=== PATIENT | female | born 1990 ===

== ENCOUNTER 2020-07-14 05:47 | Emergency (ER) | payer OTHER, MEDICAID, SELFPAY ==
[2020-07-14] VITALS (7 sets, daily range): BP systolic 113–125; BP diastolic 56–76; PULSE 80–98; RESP 16–18; TEMP 36.5; O2SAT 100; BMI 23.8
--- NOTE | 2020-07-14 07:31 | ED.SKABFB ---
HPI - Skin/Abscess/Foreign Bdy General Chief complaint: Skin/Abscess/Foreign Body Stated complaint: Abscess Time Seen by Provider: 07/14/20 06:54 Source: patient Mode of arrival: Ambulatory Limitations: no limitations History of Present Illness HPI narrative: Patient is a 29-year-old female history of IVDA presenting with abscess on her right clavicle area. She says it has been there for the last 3 days. She states that she injected there about a week ago. She has had difficulty with transportation getting to the needle exchange so she thinks that is why she has an abscess. She also is complaining urinary frequency. She is worried that she might have gonorrhea chlamydia she was treated for this all while ago she was told that the partner was also treated but she recently was back with him and is worried she had gonorrhea chlamydia might be back. She denies any fever chills or rigors MD complaint: abscess/boil Onset (ago): day(s) (3) Location: neck Severity: mild Related Data Previous Rx's Medication Instructions Recorded doxycycline hyclate 100 mg PO BID #14 cap 07/14/20 doxycycline hyclate 100 mg PO BID #14 cap 07/14/20 nitrofurantoin monohyd/m-cryst 100 mg PO Q12H 5 Days #10 cap 07/14/20 [Macrobid] nitrofurantoin monohyd/m-cryst 100 mg PO Q12H 5 Days #10 cap 07/14/20 [Macrobid] Allergies Allergy/AdvReac Type Severity Reaction Status Date / Time Sulfa (Sulfonamide Allergy Rash Verified 07/14/20 09:25 Antibiotics) Review of Systems Review of Systems Narrative: GENERAL: Denies chills, fatigue, malaise, fever, sweats, travel HEENT: Denies sinus pain, ear pain, sore throat, difficulty swallowing, neck pain RESPIRATORY: Denies dyspnea, cough, wheezing, hemoptysis, sputum. CARDIOVASCULAR: Denies chest pain, palpitations, orthopnea, edema GASTROINTESTINAL: Denies nausea, vomiting, abdominal pain, diarrhea, constipation, melena. : See HPI MUSCULOSKELETAL: Denies weakness, joint pain, or bony pain SKIN: See HPI NEUROLOGIC: Denies weakness, dizziness, headache, numbness, change in speech, confusion PSYCHIATRIC: No concerning psychosocial issues. 12 point review of systems is negative except for those stated above and HPI Patient History Medical History (Updated 07/14/20 @ 09:40 by Anabell Rush DO) Heroin abuse Social History Smoking Status: Current every day smoker Smoking Status: Current every day smoker tobacco type: cigarettes Substance Use Type: heroin Exam Initial Vital Signs Initial Vital Signs: Vital Signs Temperature 97.7 F 07/14/20 05:50 Pulse Rate 98 H 07/14/20 05:50 Respiratory Rate 18 07/14/20 05:50 Blood Pressure 125/66 07/14/20 05:50 Pulse Oximetry 100 07/14/20 05:50 GENERAL: Alert well-appearing 29-year-old female and in no acute distress. HEENT: Head atraumatic,EOMI, pupils reactive, face symmetric, moist mucous membranes CARDIOVASCULAR: Regular rate and rhythm without murmurs, rubs or gallops. RESPIRATORY: Breath sounds equal bilaterally, no wheezes rales or rhonchi. ABDOMEN: Soft, nontender. Normoactive bowel sounds all 4 quadrants. No guarding or rebound : No CVA tenderness EXTREMITIES: Normal range of motion, no clubbing or edema. Neurovascularly intact NEUROLOGICAL: Alert and oriented x4.Normal gait and speech. Cranial nerves II through XII grossly intact. SKIN: Abscess over right clavicle area medially. 2 cm x 3 cm fluctuant no induration. Multiple cutting scars noted on left forearm. Mild erythema at wrist no swelling induration or fluctuance at this time. Procedures Abscess I/D I&D #1: Site: neck Side (if applicable): right Local Anesthetic: lidocaine 1% Amount of anesthesia used (mL): 4 Technique: incised with #11 blade Amount of fluid expressed (mL): 5 Irrigation: No Packing used?: none Complications: pain and bleeding Course Orders Ordered: ED Orders 07/14/20 07:07 Chlamydia Gonorrhea PCR -URINE Stat Test Urine Stat Urine Microscopic Stat 07/14/20 07:41 CT soft tissue neck w con Stat 07/14/20 07:42 Blood Culture Stat 07/14/20 07:55 Complete Blood Count AUTO DIFF Stat Comprehensive Metabolic Panel Stat Procalcitonin Stat 07/14/20 09:38 Wound Culture and Gram Stain Stat Discontinued Medications Sodium Chloride (Normal Saline 0.9%) 1,000 mls @ 1,000 mls/hr IV BOLUS ONE Stop: 07/14/20 09:22 Last Infusion: 07/14/20 10:28 Dose: 0 mls/hr Documented by: Admin: 07/14/20 08:50 Dose: 1,000 mls/hr Documented by: MARILYN Ceftriaxone Sodium/Dextrose (Rocephin) 1 gm in 50 mls @ 100 mls/hr IV NOW ONE Stop: 07/14/20 09:59 Last Infusion: 07/14/20 10:28 Dose: 0 mls/hr Documented by: Admin: 07/14/20 09:50 Dose: 100 mls/hr Documented by: HOOD Lidocaine HCl (Lidocaine 1% (Pf)) 4 ml SUBCUT NOW ONE Stop: 07/14/20 09:13 Last Admin: 07/14/20 09:54 Dose: 4 ml Documented by: HOOD Vital Signs Vital signs: Vital Signs - 8 hr 07/14/20 05:50 07/14/20 08:16 07/14/20 08:38 Temperature 97.7 F Pulse Rate 98 H 86 94 H Respiratory Rate 18 Blood Pressure 125/66 Pulse Oximetry 100 100 100 07/14/20 08:54 07/14/20 09:00 07/14/20 09:30 Temperature Pulse Rate 81 86 87 Respiratory Rate 16 Blood Pressure 113/58 L 114/61 124/56 L Pulse Oximetry 100 100 100 07/14/20 10:42 Temperature Pulse Rate 80 Respiratory Rate 16 Blood Pressure 125/76 Pulse Oximetry 100 MDM - Skin/Abscess/Foreign Bdy Lab Data Attestation: I reviewed the patient's lab results. Result diagrams: 07/14/20 07:55 07/14/20 07:55 Labs: Lab Results 07/14/20 07/14/20 07/14/20 Range/Units 07:07 07:07 07:07 WBC (4.5-11.0) X10^3/uL RBC (4.0-5.2) X10^6/uL Hgb (12.0-16.0) g/dL Hct (36-46) % MCV (80-100) fL MCH (26-34) PG MCHC (30-36) % RDW (11.6-14.8) % Plt Count (150-400) X10^3/uL Neut % (Auto) (50-75) % Lymph % (Auto) (25-40) % Haywood % (Auto) (3-14) % Eos % (Auto) (2-4) % Baso % (Auto) (0-2) % Neut # (Auto) (0805-0876) /uL Lymph # (Auto) (7617-0765) /uL Haywood # (Auto) (0-900) /uL Eos # (Auto) (0-450) /uL Baso # (Auto) (0-100) /uL Sodium (137-145) mmol/L Potassium (3.4-5.1) mmol/L Chloride (98-107) mmol/L Carbon Dioxide (22-32) mmol/L BUN (7-17) mg/dL Creatinine (0.52-1.04) mg/dL Estimated GFR (>60) mL/min BUN/Creatinine Ratio (6-22) Glucose (70-100) mg/dL Calcium (8.4-10.2) mg/dL Total Bilirubin (0.2-1.3) mg/dL AST (14-36) IU/L ALT (<35) IU/L Alkaline Phosphatase (38-126) U/L Total Protein (6.3-8.2) g/dL Albumin (3.5-5.0) g/dL Globulin (1.7-4.1) g/dL Albumin/Globulin Ratio (1.0-2.8) Procalcitonin (<0.5) ng/mL Urine RBC None seen (0-5/HPF) Urine WBC 10-30/hpf H (0-5/HPF) Ur Squamous Epith Cells 5-10 /hpf H (0-5/HPF) Urine Bacteria Many (>30) H (None) Ur Culture Indicated? Cult not indicated Urine Test Negative (Negative) Ur Chlamydia DNA (PCR) Not detected N gonorrhoeae DNA (PCR) Detected H 07/14/20 07/14/20 Range/Units 07:55 07:55 WBC 8.3 (4.5-11.0) X10^3/uL RBC 3.99 L (4.0-5.2) X10^6/uL Hgb 11.8 L (12.0-16.0) g/dL Hct 35.9 L (36-46) % MCV 90.0 (80-100) fL MCH 29.7 (26-34) PG MCHC 33.0 (30-36) % RDW 13.0 (11.6-14.8) % Plt Count 268 (150-400) X10^3/uL Neut % (Auto) 56.8 (50-75) % Lymph % (Auto) 26.3 (25-40) % Haywood % (Auto) 14.3 H (3-14) % Eos % (Auto) 2.0 (2-4) % Baso % (Auto) 0.6 (0-2) % Neut # (Auto) 4700 (2933-0506) /uL Lymph # (Auto) 2200 (7218-7810) /uL Haywood # (Auto) 1200 H (0-900) /uL Eos # (Auto) 200 (0-450) /uL Baso # (Auto) 100 (0-100) /uL Sodium 134 L (137-145) mmol/L Potassium 4.1 (3.4-5.1) mmol/L Chloride 104 (98-107) mmol/L Carbon Dioxide 24 (22-32) mmol/L BUN 9 (7-17) mg/dL Creatinine 0.39 L (0.52-1.04) mg/dL Estimated GFR > 60.0 (>60) mL/min BUN/Creatinine Ratio 23.1 H (6-22) Glucose 131 H (70-100) mg/dL Calcium 9.2 (8.4-10.2) mg/dL Total Bilirubin 0.4 (0.2-1.3) mg/dL AST 79 H (14-36) IU/L ALT 147 H (<35) IU/L Alkaline Phosphatase 112 (38-126) U/L Total Protein 7.9 (6.3-8.2) g/dL Albumin 3.7 (3.5-5.0) g/dL Globulin 4.2 H (1.7-4.1) g/dL Albumin/Globulin Ratio 0.9 L (1.0-2.8) Procalcitonin 0.08 (<0.5) ng/mL Urine RBC (0-5/HPF) Urine WBC (0-5/HPF) Ur Squamous Epith Cells (0-5/HPF) Urine Bacteria (None) Ur Culture Indicated? Urine Test (Negative) Ur Chlamydia DNA (PCR) N gonorrhoeae DNA (PCR) Point of Care Testing Test Results Negative Urine Dip Bedside Urine Glucose Negative Bedside Urine Bilirubin + 1 Bedside Urine Ketone - Negative Urine Specific Pierron 1.025 Bedside Urine Occult Blood +++ Bedside Urine pH 6.0 Bedside Urine Protein + 30 Bedside Urine Urobilinogen - Negative Bedside Urine Nitrite + Positive Bedside Urine Leukocytes +/- [address] soft tissue neck: Radiologist's Impression: PROCEDURE: CT SOFT TISSUE NECK W CON INDICATIONS: abcess right side clavicle area TECHNIQUE: After the administration of intravenous contrast, 3.0 mm axial sections acquired from the sella to the aortic arch. Additional oblique axial 3.0 mm sections acquired through the pharynx. 3 mm thick coronal and sagittal reformats were generated. For radiation dose reduction, the following was used: automated exposure control. COMPARISON: None. FINDINGS: Image quality: Excellent. Lymph nodes: No enlarged lymph nodes seen throughout the neck. Vessels: Visualized vasculature appears patent. Neck spaces: The oropharynx, nasopharynx, and pharynx demonstrate no mucosal lesions. The vocal cords, false vocal cords, pyriform sinuses, epiglottis, vallecula, and tongue base all appear normal. Extramucosal spaces appear unremarkable. Glands: The parotid and submandibular glands appear normal. Thyroid gland is unremarkable. Miscellaneous: There is a very superficial abscess present which deforms the skin results in a lump superior to the right clavicle. It measures approximately 2.3 cm in maximum thickness. There is associated inflammatory change in the surrounding fat and thickening the overlying skin. Visualized brain and orbits appear normal. Lung apices appear clear. Superficial soft tissues appear normal. Bones: No suspicious bony lesions. Visualized sinuses and mastoids appear unremarkable. Cervical spondylosis is present at C3-C4 and C4-C5 with disc bulges at both levels. There is uncovertebral joint hypertrophy at C3-C4. There is probable canal stenosis at C3-C4. IMPRESSION: 1. Superficial 2.3 cm maximum diameter abscess just superior to the right clavicle. 2. Cervical spondylitic change. Probable canal stenosis at C3-C4. Dictated by: Saran Best M.D. on 07/14/2020 at 7:45 MDM Narrative Medical decision making narrative: Patient does have an obvious abscess over right clavicle. Concern for his deep space infection. Fortunately blood work and CT show only superficial abscess. It is easily drainaged and cultured. She also is positive for gonorrhea he is given 1 g of IV Rocephin. She is allergic to Bactrim so she is placed on doxycycline for her abscess, she is negative for chlamydia. Her urine is positive for nitrates is which may be secondary to gonorrhea versus UTI. At this time will put her on Macrobid for her UTI. She overall does not appear septic. She seems well. Discussed with her clean needles she is actually ready to go back to the addiction center and get started on methadone. Discharge Plan Departure Patient Disposition: Home Clinical Impression: Gonorrhea, UTI (urinary tract infection) Abscess of skin or subcutaneous tissue Qualifiers: Site of cutaneous abscess: neck Qualified Code(s): L02.11 - Cutaneous abscess of neck Instructions: DI for Gonorrhea, DI for Skin Abscess Activity Restrictions/Additional Instructions: *You have been diagnosed with skin abscess and gonorrhea *What to do: Keep abscess area clean and dry with soap and water. May continue to drain. You are also found to have gonorrhea you were given a dose of IV antibiotic while in the emergency department. Chlamydia was negative. However you do also have a UTI *Continue to take medications as directed Doxycycline 100 mg twice a day for 7 days for skin abscess Macrobid 100 mg twice a day for 5 days for bladder infection *Follow up with your primary care provider in 2-3 days *Return to ER if you should have increasing redness pus or swelling, persistent painful or frequent urination or any new, worsening or concerning symptoms Prescriptions: New doxycycline hyclate 100 mg capsule 100 mg PO BID Qty: 14 RF: 0 nitrofurantoin monohyd/m-cryst [Macrobid] 100 mg capsule 100 mg PO Q12H 5 Days Qty: 10 RF: 0 doxycycline hyclate 100 mg capsule 100 mg PO BID Qty: 14 RF: 0 nitrofurantoin monohyd/m-cryst [Macrobid] 100 mg capsule 100 mg PO Q12H 5 Days Qty: 10 RF: 0 Referrals: [facility] [Outside]
[2020-07-14 07:36] LABS: RBC Urine None Seen (0-5/HPF)
--- NOTE | 2020-07-14 07:41 | DI.CT.S_ITS ---
PROCEDURE: CT SOFT TISSUE NECK W CON INDICATIONS: abcess right side clavicle area TECHNIQUE: After the administration of intravenous contrast, 3.0 mm axial sections acquired from the sella to the aortic arch. Additional oblique axial 3.0 mm sections acquired through the pharynx. 3 mm thick coronal and sagittal reformats were generated. For radiation dose reduction, the following was used: automated exposure control. COMPARISON: None. FINDINGS: Image quality: Excellent. Lymph nodes: No enlarged lymph nodes seen throughout the neck. Vessels: Visualized vasculature appears patent. Neck spaces: The oropharynx, nasopharynx, and pharynx demonstrate no mucosal lesions. The vocal cords, false vocal cords, pyriform sinuses, epiglottis, vallecula, and tongue base all appear normal. Extramucosal spaces appear unremarkable. Glands: The parotid and submandibular glands appear normal. Thyroid gland is unremarkable. Miscellaneous: There is a very superficial abscess present which deforms the skin results in a lump superior to the right clavicle. It measures approximately 2.3 cm in maximum thickness. There is associated inflammatory change in the surrounding fat and thickening the overlying skin. Visualized brain and orbits appear normal. Lung apices appear clear. Superficial soft tissues appear normal. Bones: No suspicious bony lesions. Visualized sinuses and mastoids appear unremarkable. Cervical spondylosis is present at C3-C4 and C4-C5 with disc bulges at both levels. There is uncovertebral joint hypertrophy at C3-C4. There is probable canal stenosis at C3-C4. IMPRESSION: 1. Superficial 2.3 cm maximum diameter abscess just superior to the right clavicle. 2. Cervical spondylitic change. Probable canal stenosis at C3-C4. Dictated by: Saran Best M.D. on 07/14/2020 at 7:45 Approved by: Saran Best M.D. on 07/14/2020 at 7:50
[2020-07-14 07:48] LABS: Bacteria Urine Many (>30); Culture Indicated Urine Cult Not Indicated; Squamous Epithelial Cell Urine 5-10 /HPF (0-5/HPF); WBC Urine 10-30/HPF (0-5/HPF)
[2020-07-14 08:03] LABS: Add Manual Diff / Slide Review NO; Basophils Absolute Auto 100 /uL (0-100); Basophils Percent Auto 0.6 % (0-2); Eosinophils Absolute Auto 200 /uL (0-450); Hematocrit 35.9 % (36-46); Hemoglobin 11.8 g/dL (12.0-16.0); Lymphocytes Absolute Auto 2200 /uL (1100-4500); Lymphocytes Percent Auto 26.3 % (25-40); Mean Corpuscular Hemoglobin 29.7 PG (26-34); Monocytes Absolute Auto 1200 /uL (0-900); Monocytes Percent Auto 14.3 % (3-14); Neutrophils Absolute Auto 4700 /uL (1500-7000); Neutrophils Percent Auto 56.8 % (50-75); Platelet Count 268 X10^3/uL (150-400); Red Blood Cell Count 3.99 X10^6/uL (4.0-5.2); White Blood Cell Count 8.3 X10^3/uL (4.5-11.0)
[2020-07-14 08:15] LABS: Alanine Aminotransferase 147 IU/L (<35); Albumin 3.7 g/dL (3.5-5.0); Albumin Globulin Ratio 0.9 (1.0-2.8); Alkaline Phosphatase 112 U/L (38-126); Aspartate Aminotransferase 79 IU/L (14-36); BUN Creatinine Ratio 23.1 (6-22); Bilirubin Total 0.4 mg/dL (0.2-1.3); Blood Urea Nitrogen 9 mg/dL (7-17); Calcium 9.2 mg/dL (8.4-10.2); Carbon Dioxide 24 mmol/L (22-32); Chloride 104 mmol/L (98-107); Estimated Glomerular Filt Rate > 60.0 mL/min (>60); Globulin 4.2 g/dL (1.7-4.1); Glucose 131 mg/dL (70-100); Potassium 4.1 mmol/L (3.4-5.1); Sodium 134 mmol/L (137-145); Total Protein 7.9 g/dL (6.3-8.2)
[2020-07-14 08:16] LABS: HEMOLYSIS 77 (0-50)
--- NOTE | 2020-07-14 08:23 | PC.NURSE ---
Lab attempt further phlebotomy x 2 w/o success. Provider aware. New orders for IV Fluids obtained
[2020-07-14 08:32] LABS: Procalcitonin 0.08 ng/mL (<0.5)
[2020-07-14] MEDS: SODIUM CHLORIDE 0.9% 1,000 ML 1000 ML IV (08:50)
[2020-07-14 09:09] LABS: Pregnancy Test Urine Negative (Negative); Urine Chlamydia NOT DETECTED
[2020-07-14] MEDS: CEFTRIAXONE 1 GM/50 ML FROZ.PIGGY IV (09:50)
[2020-07-14] MEDS: LIDOCAINE 1% (PF) 4 ML SUBCUT (09:54)
[2020-07-16 10:39] LABS: Urine N gonorrhoeae DETECTED
== END 2020-07-14 10:42 | disposition home or self-care (01) ==
PROVIDERS: Emergency Provider Emergency Medicine
DX: L02.11 Cutaneous abscess of neck (principal); A54.9 Gonococcal infection, unspecified; N39.0 Urinary tract infection, site not specified; R35.0 Frequency of micturition
CPT/HCPCS: 36415; 70491; 80053; 81003; 81015; 81025; 84145; 85025; 87040; 87070; 87077; 87147; 87186; 87205; 87491; 87591; 96361; 96365; 99283; 99284